=== PATIENT | female | born 1970 | race Hispanic/Latino ===

== ENCOUNTER → 2018-11-18 | Day surgery (SDC) | payer BC ==
--- NOTE | 2018-11-18 12:35 | RAD REPORT ---
EXAM DESCRIPTION: US - Guided FNA Non Breast - 11/18/2018 10:25 am CLINICAL HISTORY: E04.2, R22.1 COMPARISON: Thyroid ultrasound October 27, 2018. TECHNIQUE: The patient presents for fine-needle aspiration of a previously detailed 2.2 cm lobulated left thyroid mass and an adjacent 9 mm hypoechoic mass in the soft tissues. Prior imaging was review ed. The FNA procedure, risks and alternatives were discussed with the patient in detail. After answering all questions, both oral and written consent were obtained. Time out procedure was performed. The pat ient had no contraindicated allergy or medication history. Anterior left neck was prepped and draped in the usual sterile fashion. The 2.2 cm mass was identifie d. Skin and deeper tissues were anesthetized with 1% lidocaine. Under direct sonographic visualizatio n a 25 gauge needle was advanced into the dominant nodule. Aspiration procedure was performed. Proced ure was repeated with 3 additional 25 gauge needles using the same access site. All obtained material was given to pathology. Post FNA imaging showed no hemorrhage. A 9 mm hypoechoic mass lateral to the thyroid lobe was again identified. Skin was previously steriliz ed. Skin and deeper tissues were anesthetized with 1% lidocaine. Under direct sonographic visualizati on a 25 gauge needle was advanced. Aspiration of the 9 mm nodule was performed. There were two additi onal 25 gauge needle aspirations of this nodule. All material was given to pathology. Post FNA imagin g showed no hemorrhage. Sterile bandaging placed over each puncture site. Post procedure care and precaution instructions wer e given to the patient. IMPRESSION: 1. Ultrasound-guided fine-needle aspiration was performed of the 2.2 cm lobulated left t hyroid mass. 2. Ultrasound-guided fine-needle aspiration was performed of a 9 mm hypoechoic mass in the soft tissu es lateral to the left lobe thyroid gland.
== END | disposition home or self-care (01) ==
LOC: FNA 09:42
PROVIDERS: ATTEND Otolaryngology
PROC: 0G9G3ZX Drainage of Left Thyroid Gland Lobe, Percutaneous Approach, Diagnostic (ICD-10-PCS; principal; 2018-11-18)
PROC: BG44ZZZ Ultrasonography of Thyroid Gland (ICD-10-PCS; 2018-11-18)
PROC: 07923ZX Drainage of Left Neck Lymphatic, Percutaneous Approach, Diagnostic (ICD-10-PCS; 2018-11-18)
PROC: BW4FZZZ Ultrasonography of Neck (ICD-10-PCS; 2018-11-18)
DX: C73 Malignant neoplasm of thyroid gland (principal); C77.0 Secondary and unspecified malignant neoplasm of lymph nodes of head, face and neck
CPT/HCPCS: 88161